=== PATIENT | male | born 1990 | race Caucasian/White ===

== ENCOUNTER → 2017-08-30 | Outpatient (CLI) | payer OTHER | END | disposition home or self-care (01) | LOC: HKI 14:32 | DX: M25.551 Pain in right hip (principal) | CPT/HCPCS: Z7500 ==

== ENCOUNTER → 2017-10-09 | Outpatient (CLI) | payer OTHER | END | disposition home or self-care (01) | LOC: HKI 13:27 | DX: M25.651 Stiffness of right hip, not elsewhere classified (principal) | CPT/HCPCS: Z7500 ==